=== PATIENT | female | born 1990 ===

== ENCOUNTER 2018-02-25 00:45 | Inpatient (IN) | payer MEDICAID, SELFPAY ==
[2018-02-25 01:19] VITALS: BMI 29.5
[2018-02-25] MEDS: Lactated Ringer's 1,000 ML IV SCH ×4 (01:52→11:30)
[2018-02-25 02:06] LABS: BASO % 0.4 % (0.0-2.0); EOS % 0.5 % (0.0-4.0); HEMOGLOBIN 10.4 g/dL (12.0-16.0); LYMPH # 2.3 K/uL (1.0-4.3); LYMPH % 29.1 % (20.0-40.0); MEAN CELL VOLUME 77.5 fl (81.0-99.0); MEAN CORPUSCULAR HEMOGLOBIN 25.2 pg (27.0-31.0); MEAN CORPUSCULAR HGB CONC 32.6 g/dL (33.0-37.0); MEAN PLATELET VOLUME 9.5 fl (7.2-11.7); MONO # 0.4 K/uL (0.0-0.8); MONO % 4.8 % (0.0-10.0); NEUT # 5.2 K/uL (1.8-7.0); NEUT % 65.2 % (50.0-75.0); NRBC % 0.2 % (0.0-0.0); RBC 4.14 Mil/uL (3.80-5.20); RED CELL DISTRIBUTION WIDTH 15.3 % (11.5-14.5)
[2018-02-25 02:07] VITALS: O2SAT 99
[2018-02-25] MEDS ORDERED: Fentanyl/Bupivacaine HCl 125 ML EPI ONE (05:52)
--- NOTE | 2018-02-25 07:05 | OBHP ---
Datetime: 02/25/2018 01:49 FHR - Baseline A Provider: 150 Membranes, Provider: Intact Vital Signs Provider: Reviewed; Within Normal Limits NICHD Variability Prov Fetus A: Minimal - Undetectable to <5bpm NICHD Accel Fetus A IP Provider: 15X15 FHR Category Provider Fetus A: Category I Dilatation, Provider: FT Effacement, Provider: Thick Station, Provider: -3 Datetime: 02/25/2018 01:33 IP Adm Impression: Term, intrauterine IP Admit Plan: Admit to unit; Initiate labor protocol; Initiate labor induction protocol Admit Comment, IP Provider: CC: IOL HPI: 27 YO @ 39.1wks IUP presents to L_D for IOL. Pt had an u/s 02/24; sig for BPD/HL lag ging by 3+ wks and HC by 2+ wks. Pt was told she had to be induced for IUGR. Pt endorsing feeling pre ssure when she walks around. Denies LOF, Ctx, VB, and good FM. of note, pt is non-complient with follow up. Had multiple no-shows in clinic. MD: JOCELYNN OBHx: 3x NVD @ FT. Last VD 2015, pt was induced @ 39wks for IUGR PMH: denies SurgH: denies FH: denies SH: FOB involved, denies ETOH, smoking and illicit drug use Allergies: NKDA Meds: PNV PE: GEN: NAD Cardio: S1S2 no additional heart sounds Resp: clear breath sounds b/l Abdomen: Gravid, NT, BS+ Neuro: AAO x 3 Ext: NT, no edema noted CervX: FT, thick, high Bedside U/S: vertex FM: 150, Catagory I A/P: 27 YO @ 39.1wks IUP (ROGER 03/03 by U/S) is admitted for IOL for IUGR. GBS unknown, HIV neg (1st tri), RPR neg (1st tri), Rubella immune, Hep B neg, PPD +; CXR post delivery. -admit pt -start IOL protocal -blood work, 3rd tri labs -vitals -continue FM -anesthesiology consult -continue to manage labor progression Pt discussed with attending Dr. Julio Bonilla, PGY I OB attending addendum: Patient seen and examined by me agree with above assessment and plan Pelvic Type - PN: Adequate Extremities - PN: Normal Abdomen - PN: Normal Back - PN: Not Done Breast - PN: Not Done Lungs - PN: Normal Heart - PN: Normal Thyroid - PN: Not Done Neurologic - PN: Normal HEENT - PN: Normal General - PN: Normal EGA AdmitDate IP: 39.1 IP Indication for Induction: IUGR IP Chief Complaint: Scheduled induction of labor Genitourinary Exam: Normal DTRs - PN: Not Done
--- NOTE | 2018-02-25 07:08 | OBADHP ---
Datetime: 02/25/2018 01:49 FHR - Baseline A Provider: 150 Membranes, Provider: Intact Vital Signs Provider: Reviewed; Within Normal Limits NICHD Variability Prov Fetus A: Minimal - Undetectable to <5bpm NICHD Accel Fetus A IP Provider: 15X15 FHR Category Provider Fetus A: Category I Dilatation, Provider: FT Effacement, Provider: Thick Station, Provider: -3 Datetime: 02/25/2018 01:33 Admit Comment, IP Provider: CC: IOL HPI: 27 YO @ 39.1wks IUP presents to L_D for IOL. Pt had an u/s 02/24; sig for BPD/HL lag ging by 3+ wks and HC by 2+ wks. Pt was told she had to be induced for IUGR. Pt endorsing feeling pre ssure when she walks around. Denies LOF, Ctx, VB, and good FM. of note, pt is non-complient with follow up. Had multiple no-shows in clinic. MD: JOCELYNN OBHx: 3x NVD @ FT. Last 2015, pt was induced @ 39wks for IUGR PMH: denies SurgH: denies FH: denies SH: FOB involved, denies ETOH, smoking and illicit drug use Allergies: NKDA Meds: PNV PE: GEN: NAD Cardio: S1S2 no additional heart sounds Resp: clear breath sounds b/l Abdomen: Gravid, NT, BS+ Neuro: AAO x 3 Ext: NT, no edema noted CervX: FT, thick, high Bedside U/S: vertex FM: 150, Catagory I A/P: 27 YO @ 39.1wks IUP (ROGER 03/03 by U/S) is admitted for IOL for IUGR. GBS unknown, HIV neg (1st tri), RPR neg (1st tri), Rubella immune, Hep B neg, PPD +; CXR post delivery. -admit pt -start IOL protocal -blood work, 3rd tri labs -vitals -continue FM -anesthesiology consult -continue to manage labor progression Pt discussed with attending Dr. Julio Bonilla, PGY I OB attending addendum: Patient seen and examined by me agree with above assessment and plan Pelvic Type - PN: Adequate Extremities - PN: Normal Abdomen - PN: Normal Back - PN: Not Done Breast - PN: Not Done Lungs - PN: Normal Heart - PN: Normal Thyroid - PN: Not Done Neurologic - PN: Normal HEENT - PN: Normal General - PN: Normal IP Chief Complaint: Scheduled induction of labor Genitourinary Exam: Normal DTRs - PN: Not Done EGA AdmitDate IP: 39.1 IP Adm Impression: Term, intrauterine IP Admit Plan: Admit to unit; Initiate labor protocol; Initiate labor induction protocol
--- NOTE | 2018-02-25 08:39 | OBPN ---
Datetime: 02/25/2018 08:30 IP Progress Impression: Reassuring heart rate IP Informed Consent Obtain: Vaginal Delivery; Risks, Benefits and Alternatives Discussed IP Procedures: Artificial ROM IP Progress Plan: Augmentation; Anticipate Vaginal Delivery Pool Provider: Positive Membranes, Provider: Ruptured Amniotic Fluid Color, Provider: Clear Contraction Comments Provider: 2-3m FHR - Baseline A Provider: 140 Presentation-Admit: Vertex IP Progress Note Comment: SHe as admitted and given Cervidil for IOL She missed a few appts because she moved to [facility] A: Latent phase of labor; No GBS done; Circumvallate placenta PLAN: she rec'd epidural comfortable...discussion about labor, augmentatoin...agreed to AROM...balaji ar fluid noted NICHD Accel Fetus A IP Provider: 15X15 FHR Category Provider Fetus A: Category I NICHD Variability Prov Fetus A: Moderate 6-25bpm Dilatation, Provider: 3-4 Effacement, Provider: 75 Station, Provider: -2 NICHD Decel Fetus A IP Provider: None Datetime: 02/25/2018 01:49 Vital Signs Provider: Reviewed; Within Normal Limits
[2018-02-25] MEDS ORDERED: Lidocaine 2% Inj (20ml) ONE (09:33)
[2018-02-25] MEDS ORDERED: Oxytocin 30 units/LR 500ML 30 UNITS/500 ML BAG IV ONE (09:33)
[2018-02-25] MEDS ORDERED: Oxycodone/Acetaminophen 5/325 mg Tab PO PRN ×4 (09:48→12:31)
[2018-02-25] MEDS ORDERED: Oxytocin 30 units/LR 500ML 30 U/500 ML BAG IV ONE (10:55)
--- NOTE | 2018-02-25 11:23 | OBDS ---
DELIVERY PERSONNEL Delivery Doctor: Sarah Vasquez DO Planishing Press Operator: Brittany Carreon RN Resident: Latasha Sifuentes Resident MATERNAL INFORMATION Delivery Anesthesia: Epidural Medications in Delivery: Pitocin Estimated Blood Loss (ml): 200 Placenta Cultured: No Maternal Complications: None RN Comments: AStraumatic of a viable term babygirl with Lusty cry skin to skin initiated. 9/9 APGARs initiated Vitals taken. Patient tolerated delivery well with a first degree laceration. Infa nty and patient recoverying well. Provider Comments: Over itnact perineum, of live girl. Bulb suctioned and placed on mot her's chest for [id number]. 9,9 at 1, 5min. Placenta deliveed intact spontaneously. She re mained stable. EBL 200cc LABOR SUMMARY EDC: 03/03/2018 00:00 No. Babies in Womb: 1 Attempted: No Labor Anesthesia: Epidural LABOR INFORMATION Reason for Induction: Other Reason for Induction Other: head circumference lagging in size (Annotations: Data stored by KRIS on b alf of user) Onset of Labor: 02/25/2018 03:15 Complete Dilatation: 02/25/2018 09:25 Cervical Ripening Agents: Cervidil Oxytocin: N/A Group B Beta Strep: Not Done Antibiotics # of Doses: 0 Steroids Given: None Reason Steroids Not Administered: Not Applicable Other Reason Not Administered: not required MEMBRANES Membranes Rupture Method: Artificial Rupture of Membranes: 02/25/2018 08:30 Length of Rupture (hrs): 1.20 Amniotic Fluid Color: Clear Amniotic Fluid Amount: Small Amniotic Fluid Odor: Normal STAGES OF LABOR Stage 1 hrs: 6 Stage 1 min: 10 Stage 2 hrs: 0 Stage 2 min: 17 Stage 3 hrs: 0 Stage 3 min: 13 Total Time in Labor hrs: 6 Total Time in Labor min: 40 VAGINAL DELIVERY Episiotomy: None Laceration Extension: First Degree Laceration Type: Perineal Laceration Repair: Yes Laceration Repair Note: Lidocaine infiltrated (3cc). Perinela laceratoin reparied with 2.0 Vicryl Ra pide suture. Initial Vag Sponge Count: 5 Final Vag Sponge Count: 5 Initial Vag Sharps Count: 2 Final Vag Sharps Count: 2 Sponge Count Correct: Yes Sharps Count Correct: Yes Count Comment: One syringe one suture 5 lap pads BABY A INFORMATION Delivery Date/Time: 02/25/2018 09:42 Method of Delivery: Vaginal Born in Route : No : N/A Forceps: N/A Vacuum Extraction: N/A Shoulder Dystocia : No SHOULDER DYSTOCIA BABY A Delivery Date/Time: 02/25/2018 09:42 PRESENTATION/POSITION BABY A Presentation: Cephalic Cephalic Presentation: Vertex Vertex Position: Left Occipital Anterior Breech Presentation: N/A PLACENTA INFORMATION BABY A Placenta Delivery Time : 02/25/2018 09:55 Placenta Method of Delivery: Spontaneous Placenta Status: Delivered SCORES BABY A Heart Rate 1 min: Slow, Below 100 bpm Resp Effort 1 min: Good Cry Reflex Irritability 1 min: Cough or Sneeze or Pulls Away Muscle Tone 1 min: Active Motion Color 1 min: Completely [place] Resuscitation Effort 1 min: N/A SCORE 1 MIN: 9 Heart Rate 5 min: Slow, Below 100 bpm Resp Effort 5 min: Good Cry Reflex Irritability 5 min: Cough or Sneeze or Pulls Away Muscle Tone 5 min: Active Motion Color 5 min: Completely [place] Resuscitation Effort 5 min: N/A SCORE 5 MIN: 9 INFANT INFORMATION BABY A Gestational Age at Delivery: 39.0 Gestational Status: Term Outcome : Liveborn Condition : Stable Sex: Female IDENTIFICATION/MEDS BABY A ID Band Number: [id number] ID Band Location: Right Leg; Right Arm WEIGHT/LENGTH BABY A Birthweight (gms): 3090 Weight (lb): 6 Weight (oz): 13 CORD INFORMATION BABY A No. Cord Vessels: 3 Nuchal Cord : N/A Cord Blood Taken: No Infant Suction: Mouth; Nose
[2018-02-26 07:02] LABS: BASO % 0.3 % (0.0-2.0); EOS # 0.1 K/uL (0.0-0.7); EOS % 1.3 % (0.0-4.0); HEMOGLOBIN 9.9 g/dL (12.0-16.0); LYMPH % 40.7 % (20.0-40.0); MEAN CELL VOLUME 77.9 fl (81.0-99.0); MEAN CORPUSCULAR HEMOGLOBIN 25.4 pg (27.0-31.0); MEAN CORPUSCULAR HGB CONC 32.7 g/dL (33.0-37.0); MONO # 0.5 K/uL (0.0-0.8); MONO % 6.7 % (0.0-10.0); NEUT # 3.8 K/uL (1.8-7.0); NRBC % 0.1 % (0.0-0.0); RBC 3.9 Mil/uL (3.80-5.20); RED CELL DISTRIBUTION WIDTH 15.5 % (11.5-14.5); WHITE BLOOD COUNT 7.4 K/uL (4.8-10.8)
--- NOTE | 2018-02-26 07:46 | OBPPN ---
Datetime: 02/26/2018 05:55 PP Pain Prov: Within normal limits PP Nausea Prov: Denies PP Flatus Prov: Yes PP BM Prov: Yes PP Breasts Prov: Normal PP Heart Prov: Normal PP Lungs Prov: Normal PP Abdomen/Uterus Prov: Normal PP Lochia Prov: Normal PP Vulva/Perineum Prov: Normal PP CVA Tenderness Prov: Not Done PP Extremities Prov: Normal PP C/S Incision Prov: Not Applicable PP Progress Prov: Normal PP Impression Prov: Normal progression PP Plan Prov: Continue present management PP Progress Note Prov: S: 27 YO PPD1, s/p NVD. Pt is seen and examined by bedside this AM. No a cute overnight events. No pain in her abdomen. Pt is ambulating, minimal bleeding and tolerating PO d iet. + BM and passing flatus. Denies chest pain, dyspnea, n/v, fever/chills, diarrhea, nausea/vomitin g, and calf pain. O: VS: wnl, afebrile GEN: Awake, alert, baby in bed with pt HEENT: EOMI, moist mucosa. LUNGS: CTA B/L, no wheezing, rhonci, or rales CVS: RRR, S1,S2 no murmurs ABD: ND, +BS, soft abdomen, firm fundus below umbilicus. EXT: No edema noted, neg calf tenderness NEURO/PSYCHI: AAOx3, no grossly focal deficit, preserved affect and mood. Assessment/Plan: 27 YO PPD1, s/p NVD on 02/25/18. Gave to a baby girl. Pt remains afebri le, tolerating pain with medication, good PO intake and urinating without any difficulties. Doing wel l on PPD1. -C/w regular diet as tolerated. -OOB with caution SCDs for DVT prophylaxis -C/w Percocet 5/325 mg and Ibuprofen 600 mg for pain prn -C/w Colace 100mg PO BID -CBC and CXR in AM -Encourage and ambulating. Modesta Bonilla, PGY I OB Hospitalist Addendum: Pt seen and examined by me. Agree w/ above. PPD1 s/p , doing well, b reast and bottle feeding. Continue current care. (ES) Vital Signs Provider PP: Reviewed; Within Normal Limits
--- NOTE | 2018-02-26 12:44 | RAD ---
HISTORY: TB Pos COMPARISON: Chest radiographs 09/07/2016. TECHNIQUE: Chest PA and lateral FINDINGS: LUNGS: No active pulmonary disease. PLEURA: No significant pleural effusion identified. No pneumothorax apparent. CARDIOVASCULAR: Normal. OSSEOUS STRUCTURES: No significant abnormalities. VISUALIZED UPPER ABDOMEN: Normal. OTHER FINDINGS: None. IMPRESSION: No interval acute cardiopulmonary disease appreciated.
[2018-02-27 01:44] VITALS: BP 108/72; PULSE 66; RESP 18; TEMP 97.9
== END 2018-02-26 19:30 | disposition home or self-care (01) | DRG 775 ==
LOC: H.EROB2 00:45 → H.L&D 01:31 → H.OB/GYN 12:20
PROVIDERS: ADMIT Obstetrics & Gynecology; ATTEND Obstetrics & Gynecology
PROC: 10E0XZZ Delivery of Products of Conception, External Approach (ICD-10-PCS; principal; 2018-02-25)
PROC: 0HQ9XZZ Repair Perineum Skin, External Approach (ICD-10-PCS; 2018-02-25)
PROC: 10907ZC Drainage of Amniotic Fluid, Therapeutic from Products of Conception, Via Natural or Artificial Opening (ICD-10-PCS; 2018-02-25)
PROC: 4A1HXCZ Monitoring of Products of Conception, Cardiac Rate, External Approach (ICD-10-PCS; 2018-02-25)
DX: O36.5930 Maternal care for other known or suspected poor fetal growth, third trimester, not applicable or unspecified (principal); O70.0 First degree perineal laceration during delivery; Z37.0 Single live birth; Z3A.39 39 weeks gestation of pregnancy; Z91.19 Patient's noncompliance with other medical treatment and regimen

== ENCOUNTER 2019-03-26 14:14 | Inpatient (IN) | payer MEDICAID, SELFPAY ==
[2019-03-26 14:50] VITALS: BMI 30.6
[2019-03-26] MEDS ORDERED: Lactated Ringer's 1,000 ML IV ONE (14:50)
[2019-03-26] MEDS: Lactated Ringer's 1,000 ML IV SCH ×2 (15:00→23:57)
--- NOTE | 2019-03-26 15:23 | OBADHP ---
Datetime: 03/26/2019 14:30 Admit Comment, IP Provider: 28 y/o , 37.3 weeks based on 21 weeks US with ROGER 04/13/19 sent by OUMAR Pagan to L_D due to oligohydroamnios. Patient had US done 03/26/19 which showed MARI of 4.9cm. Patient repor ts intermittent LOF for past 1 week, reports being checked by PMD and neg for rupture, denies any LOF today. Reports CTx few times a day for past 1 week. Denies VB, abdominal pain. Endorses goof m ovments. Denies any other complains at this time. care: [facility], Dr. Kruger. On previous US patient has Circum villate placenta and [place] sydnee. MARI has been reducing for past 2 US which was 4.9 this morning. ObHx: G1: at 40 weeks w/o complications G2: at 40 weeks w/o complications G3: at 39 weeks. G4: at 39 weeks PMHx: Denies PSHx: Denies Allergies: NKDA F/H: Denies Social Hx: Denies ETOH, smoking, drugs Meds: PNVs, Feosol PE: Gen: NAD Chest: RRR, S1S2 present Abdomen: Gravid, soft, NT Ext: no pedal edema SVE: close/thick/high EFM: Baseline 140s, + accels, No decels, moderate variability, Category 1 tracing. A/P: 28 y/o , 37.3 weeks based on 21 weeks US with ROGER 04/13/19 admitted for oligohydroamnios. - [place] and EFM - admit to unit for IOL - Cervidil for IOL - LR 1L 999 - Anesthesia consult for Epidural - CBC, T_S - Monitor for cervical change Case discussed with Dr. Don Webb, PGY1 Attending addendum: I saw and examined the patient myself. I reviewed the resident note above and agree with findings and management. Jackelin Ochoa MD Pelvic Type - PN: Adequate Extremities - PN: Normal Abdomen - PN: Normal Back - PN: Normal Breast - PN: Not Done Lungs - PN: Normal Heart - PN: Normal Thyroid - PN: Not Done Neurologic - PN: Not Done HEENT - PN: Normal General - PN: Normal Presentation-Admit: Vertex FHR - Baseline A Provider: 130 Comments, ACOG Physical Exam: Gen: NAD Chest: RRR, S1S2 present Abdomen: Gravid, soft, NT Ext: no pedal edema SVE: close/thick/high EFM: Baseline 140s, + accels, No decels, moderate variability, Category 1 tracing. IP Hx Assessment: The History has been Reviewed and is Current Vital Signs Provider: Reviewed; Within Normal Limits IP Chief Complaint: Suspected ruptured membranes NICHD Variability Prov Fetus A: Moderate 6-25bpm NICHD Accel Fetus A IP Provider: 15X15 FHR Category Provider Fetus A: Category I NICHD Decel Fetus A IP Provider: None Dilatation, Provider: 0 Effacement, Provider: thick Station, Provider: High Genitourinary Exam: Normal DTRs - PN: Normal IP Adm Impression: Term, intrauterine IP Admit Plan: Admit to unit
[2019-03-26 15:27] LABS: BASO % 0.2 % (0.0-2.0); EOS % 0.3 % (0.0-4.0); LYMPH # 1.8 K/uL (1.0-4.3); LYMPH % 25.9 % (20.0-40.0); MEAN CELL VOLUME 76.1 fl (81.0-99.0); MEAN CORPUSCULAR HEMOGLOBIN 24.7 pg (27.0-31.0); MEAN CORPUSCULAR HGB CONC 32.5 g/dL (33.0-37.0); MEAN PLATELET VOLUME 8.9 fl (7.2-11.7); MONO # 0.4 K/uL (0.0-0.8); MONO % 6.1 % (0.0-10.0); NEUT # 4.6 K/uL (1.8-7.0); NEUT % 67.5 % (50.0-75.0); NRBC % 0.2 % (0.0-0.0); RBC 4.04 Mil/uL (3.80-5.20); RED CELL DISTRIBUTION WIDTH 15.8 % (11.5-14.5); WHITE BLOOD COUNT 6.8 K/uL (4.8-10.8)
[2019-03-26] MEDS ORDERED: AMPicillin 2 GM in Sodium Chloride 0.9% 100 ML IVPB ONE (19:11)
[2019-03-26] MEDS ORDERED: Oxytocin 30 UNIT in NS 500 ml 30 UNITS/500 ML BAG IV ONE ×2 (20:09→20:15)
[2019-03-26] MEDS ORDERED: OXYTOCIN/0.9 % NS 20 UNIT/1,000 ML BAG IV ONE (20:09)
[2019-03-27] MEDS ORDERED: Fentanyl/Bupivacaine HCl 250 ML EPI ONE ×2 (00:25→00:31)
[2019-03-27] MEDS: Lactated Ringer's 1,000 ML IV SCH ×2 (01:40→08:55)
--- NOTE | 2019-03-27 01:45 | OBPN ---
Datetime: 03/26/2019 19:40 IP Procedures: Sterile Vag Exam IP Progress Plan: Augmentation Contraction Comments Provider: q5-6min FHR - Baseline A Provider: 130s IP Progress Note Comment: Patient comfortable without complaints. Discussed plan with patient and a ll patient questions answered. Plan to start induction due to oligohydramnios. Due to cervical exam , plan to start with Pitocin augmentation. heart tracing category 1. Vital Signs Provider: Reviewed; Within Normal Limits NICHD Accel Fetus A IP Provider: 15X15 FHR Category Provider Fetus A: Category I NICHD Variability Prov Fetus A: Moderate 6-25bpm Dilatation, Provider: 2 Effacement, Provider: 25 Station, Provider: -4 NICHD Decel Fetus A IP Provider: None Datetime: 03/26/2019 14:30 Presentation-Admit: Vertex
[2019-03-27] MEDS ORDERED: Lidocaine 1% Inj (20ml) ONE (07:33)
--- NOTE | 2019-03-27 08:50 | OBPN ---
Datetime: 03/27/2019 08:43 IP Procedures: Artificial ROM; Sterile Vag Exam IP Progress Plan: Continue present management; Augmentation Contraction Comments Provider: q3-4min FHR - Baseline A Provider: 140s-150s IP Progress Note Comment: Patient comfortable without complaints. AROM clear fluid. heart tr acing category 1. Anticipate . Plan discussed with patient and all patient questions answered. Vital Signs Provider: Reviewed; Within Normal Limits NICHD Accel Fetus A IP Provider: 15X15 FHR Category Provider Fetus A: Category I NICHD Variability Prov Fetus A: Moderate 6-25bpm Dilatation, Provider: 6 Effacement, Provider: 100 Station, Provider: 0 NICHD Decel Fetus A IP Provider: None Datetime: 03/27/2019 08:33 IP Progress Impression: Normal progression of labor
[2019-03-27] MEDS ORDERED: Benzocaine/Menthol SPRAY TOP PRN ×2 (09:49→11:41)
[2019-03-27] MEDS ORDERED: Oxycodone/Acetaminophen 5/325 mg Tab PO PRN ×4 (09:49→11:41)
[2019-03-28 08:43] LABS: BASO % 0.3 % (0.0-2.0); EOS # 0.1 K/uL (0.0-0.7); EOS % 1.4 % (0.0-4.0); LYMPH % 38.5 % (20.0-40.0); MEAN CELL VOLUME 76.2 fl (81.0-99.0); MEAN CORPUSCULAR HGB CONC 31.5 g/dL (33.0-37.0); MEAN PLATELET VOLUME 8.7 fl (7.2-11.7); MONO # 0.5 K/uL (0.0-0.8); MONO % 6.7 % (0.0-10.0); NEUT # 4.2 K/uL (1.8-7.0); NEUT % 53.1 % (50.0-75.0); NRBC % 0.1 % (0.0-0.0); RBC 4.18 Mil/uL (3.80-5.20); WHITE BLOOD COUNT 7.9 K/uL (4.8-10.8)
--- NOTE | 2019-03-29 18:34 | OBPPN ---
Datetime: 03/29/2019 08:56 PP Pain Prov: Within normal limits PP Nausea Prov: Denies PP Flatus Prov: Yes PP BM Prov: Yes PP Breasts Prov: Not Done PP Heart Prov: Normal PP Lungs Prov: Normal PP Abdomen/Uterus Prov: Normal PP Lochia Prov: Normal PP Vulva/Perineum Prov: Normal PP CVA Tenderness Prov: Normal PP Extremities Prov: Normal PP Comments Phys Exam Prov: See note PP Impression Prov: Normal progression PP Plan Prov: Continue present management; Discharge PP Progress Note Prov: 28 year old female doing well on PPD2.Patient seen and examined at [facility]. No No acute event overnight. Patient pass Flatus and BM. Tolerate regular diet, ambulates.Lochia less than menses O:Physical exam: Gen: lying in bed comfortably Heart: S1S2 present, RRR Lungs: normal breathing pattern, clear to auscultation bilaterally Abd: normal bowel sounds, soft, non-tender, fudus firm at umbilicus. Extremities: +1 pedal edema, no erythema/tenderness Psych: appropriate mood, good eye contact A/P: 28 year old female doing well on PPD2 continue orders Percocet/Motrin prn pain Encourage ambulation/ Discharge today Follow up with Dr. kacie Arambula PGY1 Case discussed with attending Attending Note: Patient was discussed with the resident and I agree with the above note. Vital Signs Provider PP: Reviewed; Within Normal Limits
--- NOTE | 2019-03-29 18:36 | OBDCSUM ---
Datetime: 03/29/2019 09:01 Discharged to, Provider: Home Follow up at, Provider: Dr Kruger Disch Instr Activity: Normal activity Disch Instr Diet: Regular Discharge Instructions, Provider: Routine instructions given Discharge Diagnosis, Provider: Term Delivered Discharge Time: 03/29/2019 10:00 Follow up in weeks, Provider: 4-6week Disch Referrals: None Contraception discussed, Prov: Yes Disch Activity Restrictions: No exercising; No lifting; Minimize stair-climbing; No sexual activity; Nothing in vagina - [place], tampons, douche Discharge Comment, Provider: 28 y/o female 03/27/19 at 37.3 EGA : Male, Wt, 3140mg, 9/9 Post- D/C Summary: No OB complications. No complications during post- period. Lochia i s less than menses. Pt able to pass flatus and BM, voiding well and able to ambulate without difficul ty. Tolerating regular diet w/o N/V. Fundus firm below umbilicus level. Discharge Instructions given to patient: Encourage PNV 1 tab po q/day Ibuprofen 600 mg 1 tab po prn q4-6 if moderate pain. C/W PN vitamin 1 tab QD Ambulatory with caution, nothing per vagina/sex for 4 weeks, no heavy lifting, avoid stairs, if ex cessive bleeding or fever without relief from Tylenol go to ED ED precautions: If excessive bleeding, pain that does not get relief, fever >100.4, palpitations, SOB, CP or other concerning symptom go to the ED. PT was urged if feeling sad, mood swing, depression, neglect of baby, suicidal thoughts, homicidal thoughts go to ER or call 911 for help [place]ah PGY1 Case discussed with attending Discharge Diagnosis Prov Other: S/P , Clinically Stable
[2019-03-29 21:28] VITALS: BP 95/59; PULSE 113; RESP 20; TEMP 98; O2SAT 98
--- NOTE | 2019-03-30 08:22 | OBPPN ---
Datetime: 03/28/2019 05:47 PP Pain Prov: Within normal limits PP Nausea Prov: Denies PP Flatus Prov: Yes PP BM Prov: Yes PP Breasts Prov: Not Done PP Heart Prov: Normal PP Lungs Prov: Normal PP Abdomen/Uterus Prov: Normal PP Lochia Prov: Normal PP Vulva/Perineum Prov: Not Done PP CVA Tenderness Prov: Not Done PP Extremities Prov: Normal PP C/S Incision Prov: Not Applicable PP Progress Prov: Normal PP Impression Prov: Normal progression PP Plan Prov: Continue present management PP Progress Note Prov: S: 28 y/o female doing well on PPD1 Patient seen and examined at bedside Endorses passing flatus and BM. Tolerating PO. Ambulating w/o difficulties Lochia like menses. O:Physical exam: Gen: lying in bed comfortably Heart: S1S2 present, RRR Lungs: normal breathing pattern, clear to auscultation bilaterally Abd: normal bowel sounds, soft, non-tender, fudus firm at umbilicus. Extremities: +1 pedal edema, no erythema/tenderness Psych: appropriate mood, good eye contact A/P: 28 y/o female doing well on PPD1 1. continue orders 3. Percocet/Motrin prn pain 4. Encourage ambulation/ 5. Possible d/c tomorrow Abigaildorene Howard pgyi Attending Note: Patient was discussed with resident and I agree with the above. IP PP Procedures: None Vital Signs Provider PP: Reviewed; Within Normal Limits
== END 2019-03-29 15:30 | disposition home or self-care (01) | DRG 560 ==
LOC: H.EROB2 14:14 → H.L&D 14:50 → H.OB/GYN 03-27 12:34
PROVIDERS: ADMIT Family Medicine; ATTEND Family Medicine
PROC: 4A1HXCZ Monitoring of Products of Conception, Cardiac Rate, External Approach (ICD-10-PCS; 2019-03-26)
PROC: 10E0XZZ Delivery of Products of Conception, External Approach (ICD-10-PCS; principal; 2019-03-27)
DX: O41.03X0 Oligohydramnios, third trimester, not applicable or unspecified (principal); Z37.0 Single live birth; Z3A.37 37 weeks gestation of pregnancy